=== PATIENT | female | born 1950 | race American Indian/Alaskan Native ===

== ENCOUNTER 2016-08-04 11:24 | Outpatient (CLI) | payer MEDICARE ==
--- NOTE | 2016-08-04 13:41 | XRay Report ---
CHEST TWO VIEWS: 08/04/16 11:24:00 CLINICAL: Breast cancer. COMPARISON: None FINDINGS: The heart is large and the central pulmonary vessels are large. The lungs are normally expanded and clear.Opacification of the right cost phrenic angle. A right [id number] tip is in the SVC. Degenerative changes in the spine. IMPRESSION: Possible small right pleural effusion. Cardiomegaly and pulmonary venous hypertension. No pulmonary edema.
== END 2016-08-04 11:25 | disposition home or self-care (01) ==
LOC: SPVIMAG 11:24
PROVIDERS: ATTEND Internal Medicine Hematology & Oncology
DX: Z23 Encounter for immunization (principal); I27.2 Other secondary pulmonary hypertension; I51.7 Cardiomegaly; R53.83 Other fatigue; C50.512 Malignant neoplasm of lower-outer quadrant of left female breast; M79.89 Other specified soft tissue disorders; L98.8 Other specified disorders of the skin and subcutaneous tissue; M25.519 Pain in unspecified shoulder; R53.81 Other malaise
CPT/HCPCS: 71020

== ENCOUNTER 2016-10-21 11:23 | Outpatient (CLI) | payer MEDICARE ==
--- NOTE | 2016-10-22 09:13 | Mammography Report ---
BONE DEXA:10/21/16 11:23:00 CLINICAL: Postmenopausal with a history of breast cancer on an aromatase inhibitor.. COMPARISON: None. TECHNIQUE: Two site bone DEXA performed on an Hologic scanner. FINDINGS: The average BMD of the lumbar spine L1-L4 is 0.857g/cm squared with a T-score of -2.7 and a Z-score of -0.6. The average BMD of the left hip is 0.801g/cm squared with a T-score of -1.5 and a Z-score of -0.5. IMPRESSION: 1. WHO classification: Osteoporosis with I. fracture risk based on spine measurements. 2. WHO classification: Osteopenia with increased fracture risk based on left hip measurements. RECOMMENDATION: Clinical correlation and routine screening. DEFINITIONS: BMD = Bone Mineral Density T-score = BMD related to mean peak bone mass of young adult (mean expressed in Standard Deviation) Z-score = Age matched BMD expressed in SD World Health Organization (WHO) Diagnostic Criteria Normal T-score > -1 SD Osteopenia T-score between -1 and -2.4 SD Osteoporosis T-score -2.5 SD or below NOTE: BMD is not the only risk factor for fracture; also consider factors such as the patient's age, risk of falling, previous osteoporotic fracture, family history of osteoporotic fractures, current smoker, and low body weight. Z-scores are not calculated if >80 years of age.
== END 2016-10-21 11:24 | disposition home or self-care (01) ==
LOC: SPVWC 11:23
PROVIDERS: ATTEND Internal Medicine Hematology & Oncology
DX: M81.0 Age-related osteoporosis without current pathological fracture (principal); M85.88 Other specified disorders of bone density and structure, other site; Z79.811 Long term (current) use of aromatase inhibitors; Z78.0 Asymptomatic menopausal state
CPT/HCPCS: 77080

== ENCOUNTER 2016-11-16 10:50 | Outpatient (CLI) | payer MEDICARE ==
--- NOTE | 2016-11-16 11:20 | XRay Report ---
CHEST 2 VIEWS INDICATION: Chronic kidney disease, stage V. COMPARISON: 08/04/2016 FINDINGS: PA and lateral chest radiographs demonstrate stable cardiomediastinal silhouette/mild cardiomegaly, aortic knob calcifications, few AP window surgical clips, right chest port tip along the mid SVC, few left chest wall surgical clips and multilevel thoracic spine degenerative spurring. Improved subtle pleural effusions with better visualized right lateral costophrenic angle. Slight fluid or thickening along the fissures though again seen. Diffuse bilateral prominence of lung markings again noted. CONCLUSION: Stable mild cardiomegaly, iatrogenic changes and prominent lung markings with improved small right pleural effusion, as described. Please correlate. Thank you for the opportunity to participate in this patient's care.
== END 2016-11-16 10:51 | disposition home or self-care (01) ==
LOC: XRAY 10:50
PROVIDERS: ATTEND Internal Medicine Nephrology
DX: N18.5 Chronic kidney disease, stage 5 (principal); I51.7 Cardiomegaly; I70.0 Atherosclerosis of aorta; J90 Pleural effusion, not elsewhere classified; M53.84 Other specified dorsopathies, thoracic region; R94.31 Abnormal electrocardiogram [ECG] [EKG]
CPT/HCPCS: 71020; 93005; 93010